=== PATIENT | female | born 1995 | race Caucasian/White ===

== ENCOUNTER → 2020-05-20 | Outpatient (REF) ==
[2020-05-21 05:06] LABS: RUBEOLA IgG ANTIBODY 31.8 AU/mL (Immune >16.4)
== END ==
LOC: M LAB 12:57
PROVIDERS: ATTEND Nurse Practitioner Adult Health
DX: Z00.00 Encounter for general adult medical examination without abnormal findings (principal)

== ENCOUNTER → 2021-02-23 | Outpatient (REF) | LOC: M EMP 07:10 | PROVIDERS: ATTEND Family Medicine | DX: Z20.822 Contact with and (suspected) exposure to COVID-19 (principal); Z11.52 Encounter for screening for COVID-19 ==